=== PATIENT | female | born 1995 | race Caucasian/White ===

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

== ENCOUNTER 2017-03-28 04:49 | Outpatient (CLI) | payer OTHER ==
[2017-03-28 05:31] VITALS: BP 112/63; PULSE 86; RESP 16; TEMP 98.2
--- NOTE | 2017-03-28 06:12 | P.MSEPDOC ---
Presenting Problems - Arrival Data Date of Arrival on Unit: 03/28/17 Time of Arrival on Unit: 04:48 Mode of Transport: Wheelchair - Complaint OB-Reason for Admission/Chief Complaint: Acute Nausea/Vomiting Comment: 2 days of diarrhea. 4 hours of abdominal pain and cramping. 1 hour of vomit and nausea Medical History - Information : 1 Para: 0 Term: 0 : 0 Abortions: Spontaneous or Elective: 0 Number of Living Children: 0 - Gestational Age Gestational Age by SANTOS (wks/days): 22 Weeks and 4 Days Review of Systems - Review of Systems Constitutional: No problems Breast: No problems ENT: No problems Cardiovascular: No problems Respiratory: No problems Gastrointestinal: No problems Genitourinary: No problems Musculoskeletal: No problems Neurological: No problems Skin: No problems Vital Signs - Temperature Temperature: 98.2 F Temperature Source: Oral - Pulse Right Sitting Brachial Pulse Rate: 86 Pulse Assessment Method: Automatic Cuff - Respirations Respiratory Rate: 16 O2 Sat by Pulse Oximetry: 99 - Blood Pressure Right Arm Blood Pressure: 112/63 Blood Pressure Mean: 79 Blood Pressure Source: Automatic Cuff Medical Screen Scoring (Pre) - Cervical Exam Dilation: Exam Deferred Effacement: Exam Deferred Membranes: Intact - Uterine Contractions Frequency: N/A Duration: N/A Intensity: N/A - Maternal Vital Signs Maternal Temperature: N/A Maternal Blood Pressure: N/A Signs of Preeclampsia: Nausea/Vomiting = 1 Maternal Respirations: N/A - Pain Assessment Pain Location and Character: Lower, Abdomen Pain Scale Used: Numeric (1 - 10) Pain Intensity: 4 Pain Management Goal: 2 Pain Description: *Acute Pain Radiation Location: none Pain Frequency: Intermittent Pain Duration: 4 Pain Duration Units: Hours Pain Behavior: Vocalization Pain Aggravating Factors: None Non-Pharmacological Interventions: Relaxation Technique - Maternal Trauma Maternal Trauma: N/A - Assessment Baseline FHR: 135 Position: N/A Station: N/A - Total Score Total Score (Pre): 1 - Level of Risk Level of Risk: Low (0-5) Physician Notification (Pre) - Physician Notified Physician Notified Date: 03/28/17 Physician Notified Time: 05:07 Physician/Practitioner Notifed:: Diego Davis Order Received: Yes Disposition - Disposition OB Disposition: Discharge to home, Written follow up instructions reviewed Discharge Date: 03/28/17 Discharge Time: 05:10 I agree with the RN Medical Screening Exam: Yes Risk & Benefit of care provided described in d/c instruction: Yes Diagnosis: VOMITING OF , UNSPECIFIED
== END 2017-03-28 05:10 | disposition home or self-care (01) ==
LOC: FBPOP 04:49
PROVIDERS: ATTEND Obstetrics & Gynecology
DX: O21.9 Vomiting of pregnancy, unspecified (principal); Z3A.22 22 weeks gestation of pregnancy
CPT/HCPCS: 81001; 85025; 96360; 99213; 99214

== ENCOUNTER 2017-03-28 20:59 | Outpatient (CLI) | payer OTHER ==
[2017-03-28 21:26] LABS: Amorphous Sediment,Urine Occasional /hpf; Appearance,Urine Clear (Clear); Bacteria,Urine Occasional /hpf; Bilirubin,Urine Negative (Negative); Blood,Urine Negative (Negative); Color,Urine Light Yellow; Glucose,Urine (UA) Negative (Negative); Ketones,Urine Negative (Negative); Leukocyte Esterase,Urine Large (Negative); Nitrite,Urine Negative (Negative); PH, Urine 7.5 (5.0-8.0); Protein,Urine Negative (Negative); RBC,Urine 3 /hpf (0-5); Specific Gravity,Urine 1.004 (1.001-1.035); Squamous Epithelial Cell,Urine 12 /hpf (0-4); Urobilinogen,Urine <2.0 mg/dL (<2.0); WBC,Urine 7 /hpf (0-5)
[2017-03-28] MEDS ORDERED: LACTATED RINGERS 1,000 ML IV ONE (21:45)
[2017-03-28 21:58] LABS: Basophils % (A) 0 %; Eosinophils # (A) 0.1 k/uL (0-0.7); Eosinophils % (A) 1 %; HCT 37.9 % (34.0-46.0); HGB 11.9 gm/dL (11.4-16.0); Lymphocytes # (A) 1.6 k/uL (1.0-4.8); Lymphocytes % (A) 18 %; MCH 30.2 pg (25.0-35.0); MCHC 31.4 g/dL (31.0-37.0); MCV 95.9 fL (80.0-100.0); Mean Platelet Volume 6.8; Monocytes # (A) 0.5 k/uL (0-1.0); Monocytes % (A) 6 %; Neutrophils # (A) 6.5 k/uL (1.3-7.7); Neutrophils % (A) 73 %; Platelet Count 278 k/uL (150-450); RBC 3.95 m/uL (3.80-5.40); WBC 8.8 k/uL (4.0-11.0)
[2017-03-28 22:33] VITALS: BP 112/53; PULSE 65; RESP 16; TEMP 98.1
--- NOTE | 2017-04-18 17:25 | P.MSEPDOC ---
Presenting Problems - Arrival Data Date of Arrival on Unit: 03/28/17 Time of Arrival on Unit: 21:00 Mode of Transport: Wheelchair - Complaint OB-Reason for Admission/Chief Complaint: Pain Comment: back and abd pain, cramping. Medical History - Information : 1 Para: 0 Term: 0 : 0 Abortions: Spontaneous or Elective: 0 Number of Living Children: 0 - Gestational Age Gestational Age by SANTOS (wks/days): 22 Weeks and 6 Days - History Complications: Smoker Review of Systems - Review of Systems Constitutional: No problems Breast: No problems ENT: No problems Cardiovascular: No problems Respiratory: No problems Gastrointestinal: Diarrhea Genitourinary: No problems Musculoskeletal: No problems Neurological: No problems Skin: No problems Vital Signs - Temperature Temperature: 98.1 F Temperature Source: Temporal Artery Scan - Pulse Right Pulse Rate: 65 Pulse Assessment Method: Automatic Cuff - Respirations Respiratory Rate: 16 - Blood Pressure Right Arm Blood Pressure: 112/53 Blood Pressure Mean: 72 Blood Pressure Source: Automatic Cuff Medical Screen Scoring (Pre) - Cervical Exam Dilation: Exam Deferred Effacement: Exam Deferred - Uterine Contractions Frequency: N/A Duration: N/A Intensity: N/A - Maternal Vital Signs Maternal Temperature: N/A Maternal Blood Pressure: N/A Signs of Preeclampsia: N/A Maternal Respirations: N/A - Pain Assessment Pain Location and Character: Breast, Abdomen Pain Scale Used: Numeric (1 - 10) Pain Intensity: 7 Pain Management Goal: 3 Pain Description: *Acute, Cramping, Sore, Tender Pain Frequency: Constant Pain Duration: 1 Pain Duration Units: Days Pain Behavior: Vocalization Pain Aggravating Factors: Activity - Assessment Baseline FHR: 135 Heart Rate - NICHD Category: Category I (Normal) = 0 - Total Score Total Score (Pre): 0 - Level of Risk Level of Risk: Low (0-5) Physician Notification (Pre) - Physician Notified Physician Notified Date: 03/28/17 Physician Notified Time: 21:31 Physician/Practitioner Notifed:: Dr Cuevas - Notification Comment Comment: reported on pts sx, was here last night in triage. reported on UA results. orders for CBC and IV hdyration Medical Screen Scoring (Post) - Cervical Exam Dilation: Exam Deferred Effacement: Exam Deferred Membranes: Intact - Uterine Contractions Frequency: N/A Duration: N/A Intensity: N/A - Maternal Vital Signs Maternal Temperature: N/A Signs of Preeclampsia: N/A - Maternal Trauma Maternal Trauma: N/A - Assessment Heart Rate: 135 - Total Score Total Score (Post): 0 - Post Treatment Level of Risk Post Treatment Level of Risk: Low (0-5) Physician Notification (Post) - Physician Notified Physician Notified Date: 03/28/17 Physician Notified Time: 22:14 Physician/Practitioner Notified:: dr cuevas - Notification Comment Comment: reported on cbc results. orders to d/c home at this time. Disposition - Disposition OB Disposition: Discharge to home Discharge Date: 03/28/17 Discharge Time: 22:34 I agree with the RN Medical Screening Exam: Yes Risk & Benefit of care provided described in d/c instruction: Yes Diagnosis: PELVIC AND PERINEAL PAIN (22 weeks )
== END 2017-03-28 22:39 | disposition home or self-care (01) ==
LOC: FBPOP 20:59
PROVIDERS: ATTEND Obstetrics & Gynecology
DX: O26.892 Other specified pregnancy related conditions, second trimester (principal); R10.2 Pelvic and perineal pain; O99.332 Smoking (tobacco) complicating pregnancy, second trimester; Z3A.22 22 weeks gestation of pregnancy
CPT/HCPCS: 96360; 85025; 81001; G0463; 99214

== ENCOUNTER 2017-04-06 23:40 | Outpatient (CLI) | payer OTHER ==
[2017-04-07 00:25] VITALS: BP 126/53; PULSE 78; RESP 18; TEMP 96.2
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
== END 2017-04-06 23:55 | disposition home or self-care (01) ==
LOC: FBPOP 23:40
PROVIDERS: ATTEND Obstetrics & Gynecology
DX: O9A.212 Injury, poisoning and certain other consequences of external causes complicating pregnancy, second trimester (principal); R10.9 Unspecified abdominal pain; Z3A.24 24 weeks gestation of pregnancy
CPT/HCPCS: 99213

== ENCOUNTER 2017-05-05 00:45 | Outpatient (CLI) | payer OTHER ==
[2017-05-05 02:03] VITALS: BP 120/65; PULSE 100; RESP 16; TEMP 97.5
--- NOTE | 2017-05-05 10:56 | P.MSEPDOC ---
Presenting Problems - Arrival Data Date of Arrival on Unit: 05/05/17 Time of Arrival on Unit: 00:45 Mode of Transport: Ambulatory - Complaint OB-Reason for Admission/Chief Complaint: Vaginal Bleeding Medical History - Information : 1 Para: 0 Term: 0 : 0 Abortions: Spontaneous or Elective: 0 Number of Living Children: 0 - Gestational Age Gestational Age by SANTOS (wks/days): 28 Weeks and 0 Days Review of Systems - Review of Systems Constitutional: No problems Breast: No problems ENT: No problems Cardiovascular: No problems Respiratory: No problems Gastrointestinal: No problems Genitourinary: No problems Musculoskeletal: No problems Neurological: No problems Skin: No problems Vital Signs - Temperature Temperature: 97.5 F Temperature Source: Temporal Artery Scan - Pulse Right Brachial Pulse Rate: 100 Pulse Assessment Method: Automatic Cuff - Respirations Respiratory Rate: 16 Oxygen Delivery Method: Room Air - Blood Pressure Right Arm Blood Pressure: 120/65 Blood Pressure Mean: 83 Blood Pressure Source: Automatic Cuff Medical Screen Scoring (Pre) - Cervical Exam Dilation: 1-3 cm = 1 Effacement: Exam Deferred Membranes: Intact - Uterine Contractions Frequency: N/A - Maternal Vital Signs Maternal Temperature: N/A Maternal Blood Pressure: N/A Signs of Preeclampsia: N/A - Pain Assessment Pain Location and Character: Abdomen Pain Scale Used: Numeric (1 - 10) Pain Intensity: 6 Pain Description: Cramping Pain Behavior: None Exhibited - Maternal Trauma Maternal Trauma: N/A - Assessment Baseline FHR: 130 Heart Rate - NICHD Category: Category I (Normal) = 0 Position: N/A Station: N/A - Total Score Total Score (Pre): 1 - Level of Risk Level of Risk: Low (0-5) Physician Notification (Pre) - Physician Notified Physician Notified Date: 05/05/17 Physician Notified Time: 01:35 Physician/Practitioner Notifed:: Dr. Martinez Spoke With: Dr. Martinez New Order Received: Yes - Notification Comment Comment: Morenita Thomason agree with MSE Disposition - Disposition Discharge Date: 05/05/17 Discharge Time: 01:45 I agree with the RN Medical Screening Exam: Yes Risk & Benefit of care provided described in d/c instruction: Yes Diagnosis: SPOTTING COMPLICATING , THIRD TRIMESTER
== END 2017-05-05 01:45 | disposition home or self-care (01) ==
LOC: FBPOP 00:45
PROVIDERS: ATTEND Obstetrics & Gynecology
DX: O26.853 Spotting complicating pregnancy, third trimester (principal); Z3A.28 28 weeks gestation of pregnancy
CPT/HCPCS: 99213

== ENCOUNTER 2017-05-06 19:04 | Observation (INO) | payer OTHER ==
[2017-05-06 19:45] LABS: Amorphous Sediment,Urine Moderate /hpf; Appearance,Urine Cloudy (Clear); Bilirubin,Urine Negative (Negative); Blood,Urine Negative (Negative); Color,Urine Yellow; Glucose,Urine (UA) Negative (Negative); Ketones,Urine Negative (Negative); Leukocyte Esterase,Urine Large (Negative); Mucus,Urine Rare /hpf; Nitrite,Urine Negative (Negative); Protein,Urine Negative (Negative); Specific Gravity,Urine 1.013 (1.001-1.035); Squamous Epithelial Cell,Urine 5 /hpf (0-4); Urobilinogen,Urine <2.0 mg/dL (<2.0); WBC,Urine 8 /hpf (0-5)
[2017-05-06 19:46] VITALS: RESP 16
[2017-05-06] MEDS ORDERED: ACETAMINOPHEN TAB 325 MG TAB PO PRN (20:25)
[2017-05-06] MEDS: BETAMET ACET-BETAMETH SOD PHOS 6 MG/ML VIAL IM SCH (20:40)
[2017-05-06 20:49] VITALS: BP 115/63; PULSE 80; TEMP 96.9; BMI 28.3
--- NOTE | 2017-05-07 07:10 | P.HPOB ---
History of Present Illness H&P Date: 05/07/17 Chief Complaint: Cramping This is an 21-year-old female 1 para 0 with an estimated date of confinement of 07/28/2017, estimated gestational age of 28 weeks, who presented to labor and delivery last evening complaining of cramping. She was originally seen on 05/05/2017 at approximately 1:30 in the morning with complaints of spotting after intercourse. At that time she had no complaints of contractions but was noted to be dilated to 1 cm. When she arrived back in triage she denied any bleeding but was complaining of cramping ever since she was checked in triage. Since it had been over 24 hours, FFN was ordered and was noted to be positive. No regular contractions were noted however her cervix was noted to be 1-1/2 cm by the same nurse. She is therefore admitted for betamethasone 2. Her course has been with Dr. Baez and has been uncomplicated up until this point. Review of Systems Constitutional: Denies chills, Denies fever Eyes: denies blurred vision, denies pain Ears, nose, mouth and throat: Denies headache, Denies sore throat Cardiovascular: Denies chest pain, Denies shortness of breath Respiratory: Denies cough Gastrointestinal: Reports abdominal pain (Lower cramping) Genitourinary: Reports pelvic pain, Reports Musculoskeletal: Reports low back pain Neurological: Denies numbness, Denies weakness Psychiatric: Denies anxiety, Denies depression Past Medical History Past Medical History: No Reported History Additional Past Medical History / Comment(s): eczema History of Any Multi-Drug Resistant Organisms: None Reported, MRSA Date of last positivie culture/infection: 2014 MDRO Source:: Back Past Surgical History: No Surgical Hx Reported Additional Past Surgical History / Comment(s): cyst Past Anesthesia/Blood Transfusion Reactions: No Reported Reaction Past Psychological History: No Psychological Hx Reported Smoking Status: Former smoker Past Alcohol Use History: None Reported Past Drug Use History: None Reported - Past Family History Father Family Medical History: No Reported History Medications and Allergies Home Medications Medication Instructions Recorded Confirmed Type Pnv No.95/Ferrous Fum/Folic AC 1 tab PO DAILY 03/28/17 05/06/17 History [ Multivitamin Tablet] Allergies Allergy/AdvReac Type Severity Reaction Status Date / Time latex Allergy Itching Verified 05/06/17 19:12 Exam Osteopathic Statement: *. No significant issues noted on an osteopathic structural exam other than those noted in the History and Physical/Consult. - Vital Signs Vital signs: Vital Signs Temp Pulse Resp BP 05/06/17 20:39 96.9 F L 80 16 115/63 05/06/17 20:20 97 F L 109 H 16 110/56 05/06/17 19:27 97 F L 109 H 16 110/56 Intake and Output 05/06/17 05/07/17 05/07/17 22:59 06:59 14:59 Other: # Voids 2 Weight 72.575 kg Gen.: Well-developed well-nourished male in no acute distress HEENT: Within normal limits Heart: Regular rate and rhythm Lungs: Clear to auscultation bilaterally Abdomen: Cervix: 1-1/2 cm/50 to 60 %/-2 station heart tones: Reactive Contractions: Irregular Extremities: Negative Homans Results Abnormal Lab Results - Last 24 Hours (Table) 05/06/17 Range/Units 19:20 Urine Appearance Cloudy H (Clear) Ur Leukocyte Esterase Large H (Negative) Urine WBC 8 H (0-5) /hpf Ur Squamous Epith Cells 5 H (0-4) /hpf Amorphous Sediment Moderate H (None) /hpf Urine Mucus Rare H (None) /hpf Assessment and Plan (1) labor in third trimester without delivery Current Visit: Yes Status: Acute Code(s): O60.03 - LABOR WITHOUT DELIVERY, THIRD TRIMESTER SNOMED Code(s): 3344846 (2) 28 weeks gestation of Current Visit: Yes Status: Acute Code(s): Z3A.28 - 28 WEEKS GESTATION OF SNOMED Code(s): 74498475 Plan: Plan is to continue observation until after second dose of Celestone. Will obtain complete obstetrical ultrasound today. Patient is instructed to be off of work and on pelvic rest at this time. She is advised to follow-up with Dr. Baez in the office in 1 week. We will obtain a social service consult to help her with transportation issues. She is advised that she will need a referral to maternal medicine due to her dilation at 28 weeks. As long as she is stable and not showing regular contractions, she may be old be discharged tonight after her second Celestone shot.
--- NOTE | 2017-05-07 08:24 | US ---
EXAMINATION TYPE: US OB >= 14 wk fetus DATE OF EXAM: 05/07/2017 COMPARISON: US 12/30/2016 CLINICAL HISTORY: labor TECHNIQUE: Transabdominal (TA) GESTATIONAL AGE / DATING Physician Established: (28 weeks/2 days) EDC: 07/28/2017 Dates by LMP: (27 weeks/6 days) EDC: 07/31/2017 Dates by First Scan: (28 weeks/2 days) EDC: 07/28/2017 Dates by Current Scan: (28 weeks/0 days) EDC: 07/30/2017 SURVEY IUP: Single PLACENTA: Anterior PREVIA: No Previa MAI: 11.0 cm Normal CERVICAL LENGTH (transabdominal: norm > 3.0cm): 2.1 cm BIOMETRY PRESENTATION: Vertex LIE: Longitudinal BPD: 7.25 cm 29 weeks / 1 days HC: 26.52 cm 28 weeks / 6 days AC: 23.95 cm 28 weeks / 2 days FL: 5.2 cm 27 weeks / 6 days ESTIMATED WEIGHT IN GRAMS: 1192 grams ESTIMATED WEIGHT IN LBS/OZ: 2 lbs. 10 oz. WEIGHT PERCENTAGE BASED ON ESTABLISHED DATES: 34.2% HC/AC: 1.11 Normal FL/AC: 21.79 Normal HEART RATE: 150 bpm RHYTHM: Normal Viable IUP, measurements consistent with dates. Hypoechoic area visualized within the placenta measur ing 1.0 x 1.0 x 1.0 cm, possible placental ruiz. Cervix appears shortened. IMPRESSION: Viable intrauterine of 28 weeks 0 days with an EDC of 07/30/2017. Hypoechoic area within the placenta may represent a small placental ruiz. Note is made the cervix appears to be shortened as me asured above.
[2017-05-07] MEDS ORDERED: PRENATAL VIT-IRON-FOLIC ACID 1 EACH CAP PO SCH (12:00)
[2017-05-07] MEDS: BETAMET ACET-BETAMETH SOD PHOS 6 MG/ML VIAL IM SCH (20:41)
== END 2017-05-07 21:00 | disposition home or self-care (01) ==
LOC: FBPOP 19:04 → 4FBP 20:23
PROVIDERS: ADMIT Obstetrics & Gynecology; ATTEND Obstetrics & Gynecology
DX: O60.03 Preterm labor without delivery, third trimester (principal); Z3A.28 28 weeks gestation of pregnancy; L30.9 Dermatitis, unspecified; Z87.891 Personal history of nicotine dependence; Z86.14 Personal history of Methicillin resistant Staphylococcus aureus infection; Z91.040 Latex allergy status
CPT/HCPCS: 59025; 96372 ×2; 82731; 81001; 76805; G0463; G0378 ×2; J0702 ×2; S0197; 99213

== ENCOUNTER 2017-05-13 22:20 | Outpatient (CLI) | payer OTHER ==
[2017-05-13 23:10] VITALS: BP 112/65; PULSE 109; RESP 16; TEMP 97.3
--- NOTE | 2017-05-14 06:28 | P.MSEPDOC ---
Presenting Problems - Arrival Data Date of Arrival on Unit: 05/13/17 Time of Arrival on Unit: 22:20 Mode of Transport: Ambulatory - Complaint OB-Reason for Admission/Chief Complaint: Pain, Other Comment: Pt c/o of pressure and cramping that started around 1700 Medical History - Information : 1 Para: 0 Term: 0 : 0 Abortions: Spontaneous or Elective: 0 Number of Living Children: 0 - Gestational Age Gestational Age by SANTOS (wks/days): 29 Weeks and 1 Days Review of Systems - Review of Systems Constitutional: No problems Breast: No problems ENT: No problems Cardiovascular: No problems Respiratory: No problems Gastrointestinal: No problems Genitourinary: No problems Musculoskeletal: No problems Neurological: No problems Skin: No problems Vital Signs - Temperature Temperature: 97.3 F Temperature Source: Temporal Artery Scan - Pulse Right Brachial Pulse Rate: 109 Pulse Assessment Method: Automatic Cuff - Respirations Respiratory Rate: 16 Oxygen Delivery Method: Room Air O2 Sat by Pulse Oximetry: 98 - Blood Pressure Right Arm Blood Pressure: 112/65 Blood Pressure Mean: 80 Blood Pressure Source: Automatic Cuff Medical Screen Scoring (Pre) - Cervical Exam Dilation: 1-3 cm = 1 Membranes: Intact - Uterine Contractions Frequency: N/A Duration: N/A Intensity: N/A - Maternal Vital Signs Maternal Temperature: N/A Maternal Blood Pressure: N/A Signs of Preeclampsia: N/A Maternal Respirations: N/A - Pain Assessment Pain Location and Character: Back, Abdomen Pain Scale Used: Numeric (1 - 10) Pain Intensity: 5 Pain Description: Cramping, Pressure Pain Duration: 5 Pain Duration Units: Minutes Pain Behavior: None Exhibited - Maternal Trauma Maternal Trauma: N/A - Assessment Baseline FHR: 135 Heart Rate - NICHD Category: Category I (Normal) = 0 NST: Reactive Position: N/A Station: N/A - Total Score Total Score (Pre): 1 - Level of Risk Level of Risk: Low (0-5) Physician Notification (Pre) - Physician Notified Physician Notified Date: 05/13/17 Physician Notified Time: 22:57 Physician/Practitioner Notifed:: Dr. Cortez Spoke With: Dr. Cortez New Order Received: Yes - Notification Comment Comment: this rn agrees with previous career development consultant and thinks this agreement is unecessary as previous manager alliance had her own license Disposition - Disposition OB Disposition: Discharge to home, Written follow up instructions reviewed Discharge Date: 05/13/17 Discharge Time: 23:02 I agree with the RN Medical Screening Exam: Yes Risk & Benefit of care provided described in d/c instruction: Yes Diagnosis: FALSE LABOR BEFORE 37 COMPLETED WEEKS OF GEST, THIRD TRI
== END 2017-05-13 23:02 | disposition home or self-care (01) ==
LOC: FBPOP 22:20
PROVIDERS: ATTEND Obstetrics & Gynecology
DX: O47.03 False labor before 37 completed weeks of gestation, third trimester (principal); Z3A.29 29 weeks gestation of pregnancy
CPT/HCPCS: 59025; G0463; 99213

== ENCOUNTER 2017-06-20 20:10 | Observation (INO) | payer OTHER ==
[2017-06-20] MEDS ORDERED: LACTATED RINGERS 1,000 ML IV ONE (20:45)
[2017-06-20 21:11] VITALS: RESP 16
[2017-06-20] MEDS: LACTATED RINGERS 1,000 ML IV SCH (22:21)
[2017-06-20 22:55] VITALS: BP 120/65; PULSE 81; TEMP 97.8; BMI 31.6
--- NOTE | 2017-06-20 23:40 | P.HPOB ---
History of Present Illness H&P Date: 06/20/17 Chief Complaint: Intrauterine Brixey at 34 weeks 4 days' gestation: contractions Rusty is a 21-year-old at 34 and 4 arriving complaining of contractions. She's had multiple episodes of labor symptoms and has been dilated for number of weeks. She has been on bedrest and pelvic rest for last several weeks but reports that yesterday she and her boyfriend decided that they are going to mass around and she had digital penetration and earlier today she began alphonse. She was given very strict instructions and felt like since next week her gas refrigerator servicer was planning to take her off pelvic rest and be fine to start resuming her sexual activities. She reports that the contractions today began at about noon but she was not timing them at all. She relates to me that she wasn't sure what contractions really were despite the fact that throughout the she has been admitted for an transferred for labor on more than one occasion so it is unclear to me how she cannot be certain as to whether not she was alphonse how long they were lasting. This evening she arrived and was complaining of contractions and placed on the monitor. Minimal contractions are being traced and her contraction strength is what she is reporting is very severe but were not picking them up well on the toco. She also is concerned that she was leaking fluid. She does have some blood in the vagina which could be from her extremities yesterday or the checked today. Her cervix is dilated to 3/2 cm and about 90% effaced with a -3 station. No cervical change has occurred in the last 2 hours. heart tones were in the 120s to 130s and have been reactive. 2 separate and her sugars were done and both were negative. In discussing treatment options for her, I did discuss admitting her and potentially giving her tocolytics with Procardia to try and slow the contractions down since she has not made any significant cervical change since she's been here. Versus transferring her to a tertiary care center as we are unable to provide care for a baby at 34 weeks 4 days gestation and the baby would have to be transferred. She would like to be transferred to us that she can stay with her baby even though she may not actually be in labor and she could potentially be discharged. I plan to get an ultrasound to verify her amniotic fluid index and will speak with her again giving her repeat set of options if she still has a desire to be transferred bulb move forward with trying to transfer her to [facility]. On physical exam currently her vital signs are stable and afebrile. Heart regular, lungs clear, extremities are without pain. Osteopathic exams unremarkable. It is noted that during a speculum exam she has a large quantity of clumpy discharge likely representing a yeast infection. Assessment intrauterine at 34 weeks. Plan if there is any further concerns were labor will transfer the patient at her request Past Medical History Past Medical History: No Reported History Additional Past Medical History / Comment(s): eczema History of Any Multi-Drug Resistant Organisms: None Reported, MRSA Date of last positivie culture/infection: 2014 MDRO Source:: Back Past Surgical History: No Surgical Hx Reported Additional Past Surgical History / Comment(s): cyst Past Anesthesia/Blood Transfusion Reactions: No Reported Reaction Past Psychological History: No Psychological Hx Reported Smoking Status: Former smoker Past Alcohol Use History: None Reported Past Drug Use History: None Reported - Past Family History Father Family Medical History: No Reported History Medications and Allergies Home Medications Medication Instructions Recorded Confirmed Type Pnv No.95/Ferrous Fum/Folic AC 1 tab PO DAILY 03/28/17 06/20/17 History [ Multivitamin Tablet] Allergies Allergy/AdvReac Type Severity Reaction Status Date / Time latex Allergy Itching Verified 06/20/17 20:24 Exam Osteopathic Statement: *. No significant issues noted on an osteopathic structural exam other than those noted in the History and Physical/Consult. - Vital Signs Vital signs: Vital Signs Temp Pulse Resp BP 06/20/17 22:50 97.8 F 81 16 120/65 06/20/17 20:24 98.0 F 86 16 119/57 Intake and Output 06/20/17 06/20/17 06/21/17 14:59 22:59 06:59 Intake Total 1000 Balance 1000 Intake: Intake, IV Titration 1000 Amount Lactated Ringers 1,000 ml 1000 @ 999 mls/hr IV .Q1H1M ONE Rx#:[id number] Other: # Voids 1 Weight 81.193 kg - OBG Physical Exam Abdomen: bowel sounds normal, no diffuse tenderness, no bruit present, no guarding noted, no hepatomegaly, no splenomegaly, no mass Vulva: both: normal Vagina: discharge Uterus: Dilated to 3 1/2 cm Adnexa: Gravid uterus measuring slightly smaller than expected dates
[2017-06-21] MEDS: NIFEdipine 10 MG CAP PO PRN ×3 (00:05→01:06)
--- NOTE | 2017-06-21 00:20 | US ---
EXAMINATION TYPE: US OB limited DATE OF EXAM: 06/20/2017 COMPARISON: US 2018 CLINICAL HISTORY: MAI and position. For MAI and position EXAM PERFORMED: Transabdominal (TA) GESTATIONAL AGE / DATING Physician Established: (34 weeks/4 days) EDC: 07/28/2017 No growth performed on today?s study per ordering physician SURVEY MAI: 17.3 cm Normal Ultrasound evidence of premature rupture of membranes? no PRESENTATION: Vertex HEART RATE: 134 bpm RHYTHM: Normal IMPRESSION: There is cephalic presentation. The amniotic fluid is adequate. No complicating process seen.
[2017-06-21 00:22] LABS: Amorphous Sediment,Urine Rare /hpf; Appearance,Urine Cloudy (Clear); Bacteria,Urine Occasional /hpf; Bilirubin,Urine Negative (Negative); Blood,Urine Moderate (Negative); Color,Urine Light Yellow; Glucose,Urine (UA) Negative (Negative); Ketones,Urine 1+ (Negative); Leukocyte Esterase,Urine Large (Negative); Mucus,Urine Rare /hpf; Nitrite,Urine Negative (Negative); PH, Urine 7.5 (5.0-8.0); Protein,Urine Negative (Negative); RBC,Urine 8 /hpf (0-5); Specific Gravity,Urine 1.007 (1.001-1.035); Squamous Epithelial Cell,Urine 3 /hpf (0-4); Urobilinogen,Urine <2.0 mg/dL (<2.0); WBC,Urine 18 /hpf (0-5)
[2017-06-21] MEDS ORDERED: ceFAZolin IN SWFI 2 GM/20 ML SYRINGE IVP ONE (00:45)
[2017-06-21] MEDS: BUTORPHANOL 1 MG/ML 1 ML VIAL IV PRN ×3 (00:52→05:11)
--- NOTE | 2017-06-21 05:16 | P.TRANS ---
Providers Date of admission: 06/20/17 21:50 Expected date of discharge: 06/21/17 Attending physician: Lakesha Baez Primary care physician: Lakesha Baez [facility] Course: Patient is being transferred to [facility] under the care of maternal medicine specialist . We have monitored Duarte through the night and she had made no cervical change until 5 this morning when she went from 3 1/2 to 4 cm. She still 90% effaced and between -3-2 station. Baby is slightly lower than what the baby was through the night. She was 3 1/2 cm at 2:30 the morning when she was checked previously. Pain in the last hour or so is also increased from what it had been. She is having difficult time lying still in bed and the pain is predominantly in her back and in her low pelvis. We are still not tracing contractions well. However with her making cervical change and our facility unable to take care of any babies prior to 35 weeks it is necessary for me to transfer to a high risk center. Risks of transfer including potential delivery in an ambulance were discussed with the patient in detail as well as risks of the right itself. She is not on any other medications and has only been receiving Stadol IV for pain through the night. I did discuss the transfer with the resident verified it was okay for transfer with her attending. We'll plan to transfer her as soon as feasible and all of the questions were answered for her prior to the transfer. She is from my standpoint with minimal cervical record changer tester the last 6 hours but now finally making some change stable for transfer. Patient Condition at Discharge: Serious Plan - Transfer Summary Transfer Medications: Active Medications Generic Name Dose Route Start Last Admin Trade Name Freq PRN Reason Stop Dose Admin Butorphanol Tartrate 1 mg 06/20/17 21:49 06/21/17 03:01 Stadol IV 1 mg Q2HR PRN Administration Pain Lactated Ringer's 1,000 mls @ 125 mls/hr 06/20/17 22:00 06/20/17 22:21 Lactated Ringers IV 125 mls/hr .Q8H LEE Administration Nifedipine 10 mg 06/21/17 07:00 Procardia PO Q6HR LEE
[2017-06-21] MEDS: LACTATED RINGERS 1,000 ML IV SCH (05:48)
[2017-06-21] MEDS ORDERED: NIFEdipine 10 MG CAP PO SCH (07:00)
== END 2017-06-21 05:55 ==
LOC: FBPOP 20:10 → 4FBP 21:50
PROVIDERS: ADMIT Obstetrics & Gynecology; ATTEND Obstetrics & Gynecology
DX: O60.03 Preterm labor without delivery, third trimester (principal); Z3A.34 34 weeks gestation of pregnancy; Z91.040 Latex allergy status; Z87.891 Personal history of nicotine dependence; Z86.14 Personal history of Methicillin resistant Staphylococcus aureus infection
CPT/HCPCS: 59025; 96376; 96361; 96374; 96375; 81001; 76815; G0378 ×2; G0463; J0595; J0690; 96360; 96365; 99214

== ENCOUNTER 2017-11-27 01:24 | Emergency (ER) | payer OTHER ==
[2017-11-27 01:45] VITALS: BP 111/60; PULSE 84; RESP 16; TEMP 98.1
--- NOTE | 2017-11-27 02:29 | XR ---
EXAMINATION TYPE: XR knee complete RT DATE OF EXAM: 11/27/2017 COMPARISON: NONE HISTORY: Knee pain TECHNIQUE: 3 views FINDINGS: I see no fracture nor dislocation. Joint spaces are normal. There is no sign of knee joint effusion. IMPRESSION: Negative right knee exam.
--- NOTE | 2017-11-27 03:22 | ED ---
General Adult HPI - General Source: patient, RN notes reviewed Mode of arrival: ambulatory Limitations: no limitations <Topher Powell P - Last Filed: 11/27/17 03:14> <Lashay Vazquez P - Last Filed: 11/27/17 05:39> - General Chief complaint: Extremity Injury, Lower Stated complaint: Knee pain Time Seen by Provider: 11/27/17 01:46 - History of Present Illness Initial comments: 22-year-old female presents to the emergency department for a chief complaint of right knee pain 2 days. Patient states she was walking down the stairs when she slipped and fell. Patient states this occurred 2 days ago. She states she fell down about 6 stairs and oriented on her knee. Patient states the pain is mostly anterior in the knee as well as somewhat posteriorly. She denies pain in the calf. She denies any other injuries during the fall. She denies back pain or hitting her head. Patient denies any pain in the foot. Patient states she has been walking but states she walks with a limp. She states she has been walking on her toes which seems to help.Patient has no other complaints at this time including shortness of breath, chest pain, abdominal pain, nausea or vomiting, headache, or visual changes. (Topher Powell) - Related Data Home Medications Medication Instructions Recorded Confirmed Pnv No.95/Ferrous Fum/Folic AC 1 tab PO DAILY 03/28/17 06/20/17 [ Multivitamin Tablet] Allergies Allergy/AdvReac Type Severity Reaction Status Date / Time latex Allergy Itching Verified 11/27/17 01:45 Review of Systems ROS Other: All systems not noted in ROS Statement are negative. <Topher Powell P - Last Filed: 11/27/17 03:14> ROS Other: All systems not noted in ROS Statement are negative. <Lashay Vazquez P - Last Filed: 11/27/17 05:39> ROS Statement: Those systems with pertinent positive or pertinent negative responses have been documented in the HPI. Past Medical History Past Medical History: No Reported History Additional Past Medical History / Comment(s): eczema History of Any Multi-Drug Resistant Organisms: None Reported, MRSA Date of last positivie culture/infection: 2014 MDRO Source:: Back Past Surgical History: No Surgical Hx Reported Additional Past Surgical History / Comment(s): cyst Past Anesthesia/Blood Transfusion Reactions: No Reported Reaction Past Psychological History: No Psychological Hx Reported Smoking Status: Current every day smoker Past Alcohol Use History: None Reported Past Drug Use History: None Reported - Past Family History Father Family Medical History: No Reported History <Topher Powell P - Last Filed: 11/27/17 03:14> General Exam Limitations: no limitations General appearance: alert, in no apparent distress Head exam: Present: atraumatic, normocephalic, normal inspection Eye exam: Present: normal appearance, PERRL, EOMI. Absent: scleral icterus, conjunctival injection, periorbital swelling ENT exam: Present: normal exam, mucous membranes moist Neck exam: Present: normal inspection, full ROM. Absent: tenderness, meningismus, lymphadenopathy Respiratory exam: Present: normal lung sounds bilaterally. Absent: respiratory distress, wheezes, rales, rhonchi, stridor Cardiovascular Exam: Present: regular rate, normal rhythm, normal heart sounds. Absent: systolic murmur, diastolic murmur, rubs, gallop, clicks Extremities exam: Present: full ROM (Patient has full range of motion of the right knee. Patient has full extension as well as flexion of the right lower extremity.), tenderness (Generalized tenderness over the anterior posterior right knee), normal capillary refill (Doppler refill less than 2 seconds and DP pulse 2+ in the right lower extremity.). Absent: pedal edema, joint swelling ( No swelling or ecchymosis noted of the right knee), calf tenderness (Tenderness , no erythema or swelling, negative Homans sign.) Neurological exam: Present: alert, oriented X3, CN II-XII intact Psychiatric exam: Present: normal affect, normal mood <Topher Powell P - Last Filed: 11/27/17 03:14> Vital Signs 11/27/17 01:42 Temperature 98.1 F Pulse Rate 84 Respiratory 16 Rate Blood Pressure 111/60 O2 Sat by Pulse 99 Oximetry Medical Decision Making <Topher Powell P - Last Filed: 11/27/17 03:14> <Lashay Vazquez P - Last Filed: 11/27/17 05:39> - Medical Decision Making 22-year-old female presents to the emergency department for a chief complaint of right knee pain 2 days. Patient fell down about 6 stairs. Patient states she has been walking on it but it is somewhat painful. Patient has not taken anything for pain or ice the knee. On exam patient does have full range of motion of the right knee without ecchymosis or edema noted. Generalized tenderness over the right knee. Patient denies hearing a pop. No erythema in the calf and negative Homans sign. At this time patient likely has a contusion of the right knee. As patient may have ligamentous injury she will be given a knee immobilizer as well as a prescription for crutches. She will follow up with orthopedics in one to 2 days. She will return immediately to the emergency Department if she has any worsening symptoms. (Topher Powell) I was available for consultation in the emergency department. The history and physical exam were done by the Midlevel Provider. Medical decision making was done by the Midlevel Provider. The Midlevel Provider did not contact me for this patient's care. I was not directly involved in this patient's care. (Lashay Vazquez) Disposition Is patient prescribed a controlled substance at d/c from ED?: No Time of Disposition: 03:22 <Topher Powell P - Last Filed: 11/27/17 03:14> <Lashay Vazquez - Last Filed: 11/27/17 05:39> Clinical Impression: Right knee injury Disposition: HOME SELF-CARE Condition: Good Instructions: Knee Pain (ED) Additional Instructions: Please take Motrin and Tylenol for pain. Please rest ice and elevate the right knee. Use knee immobilizer and crutches as needed. Follow-up with orthopedics tomorrow. Return to the emergency department if you have any worsening symptoms. Referrals: Magali Leija MD [Primary Care Provider] - 1-2 days Melvin Farooq MD [STAFF PHYSICIAN] - 1-2 days
== END 2017-11-27 03:44 | disposition home or self-care (01) ==
LOC: EC 01:24
DX: S89.91XA Unspecified injury of right lower leg, initial encounter (principal); F17.200 Nicotine dependence, unspecified, uncomplicated; Z91.040 Latex allergy status; Z86.14 Personal history of Methicillin resistant Staphylococcus aureus infection; W10.9XXA Fall (on) (from) unspecified stairs and steps, initial encounter; Y93.01 Activity, walking, marching and hiking; Y92.009 Unspecified place in unspecified non-institutional (private) residence as the place of occurrence of the external cause
CPT/HCPCS: 99283